=== PATIENT | male | born 1995 | race Caucasian/White ===

== ENCOUNTER 2024-01-08 04:48 | Day surgery (SDC) | payer OTHER ==
[2024-01-04 12:33] VITALS: BMI 23.7
[2024-01-08] MEDS ORDERED: BUPIVACAINE HCL/PF 0.25% (2.5MG/ML) 10 ML VIAL ONE (12:24)
[2024-01-08] MEDS ORDERED: BACITRACIN ZINC 15 GM TUBE TOPICAL OINTMENT ONE (12:24)
[2024-01-08] MEDS ORDERED: PROPOFOL 20 ML ONE (12:47)
[2024-01-08] MEDS ORDERED: MIDAZOLAM HCL 2 MG/2 ML SINGLE DOSE VIAL ONE (12:47)
[2024-01-08] MEDS ORDERED: LIDOCAINE HCL/PF 2% SDV 5ML VIAL ONE (12:47)
[2024-01-08] MEDS ORDERED: LIDOCAINE HCL 1%, 10 MG/ML (20ML VIAL) ONE (13:09)
[2024-01-08] MEDS: ceFAZolin SODIUM 1 GM VIAL IVPB ONE (13:26)
[2024-01-08] MEDS ORDERED: ceFAZolin SODIUM 1 GM VIAL ONE (13:27)
[2024-01-08] MEDS ORDERED: DEXAMETHASONE SOD PHOSPHATE 4 MG/1 ML VIAL ONE (13:27)
[2024-01-08] MEDS: BUPIVACAINE HCL/PF 0.25% (2.5MG/ML) 10 ML VIAL IJ ONE (13:34)
[2024-01-08] MEDS: LIDOCAINE HCL 1%, 10 MG/ML (20ML VIAL) NR ONE (13:34)
[2024-01-08] MEDS ORDERED: KETOROLAC TROMETHAMINE 30 MG/1 ML VIAL ONE (13:51)
[2024-01-08] MEDS ORDERED: ONDANSETRON 4 MG/2 ML VIAL ONE (13:51)
[2024-01-08] MEDS ORDERED: oxyCODONE HCL 5 MG TABLET PO PRN ×2 (14:11)
[2024-01-08] MEDS ORDERED: ONDANSETRON 4 MG/2 ML VIAL IVPUSH PRN (14:11)
[2024-01-08] MEDS ORDERED: PROMETHAZINE HCL 25 MG/1 ML VIAL IVPB PRN (14:11)
[2024-01-08] MEDS ORDERED: LACTATED RINGERS SOLUTION 1,000 ML IV SCH (14:15)
[2024-01-08] MEDS: ACETAMINOPHEN 1000 MG/100 ML BAG IVPB ONE (14:22)
[2024-01-08 16:21] VITALS: BP 115/69; PULSE 63; RESP 16; TEMP 98.6
== END 2024-01-08 16:26 | disposition home or self-care (01) ==
LOC: JASU-SURG 04:48
PROVIDERS: ATTEND Urology
PROC: 0VNS0ZZ Release Penis, Open Approach (ICD-10-PCS; principal; 2024-01-08 13:00)
DX: N47.5 Adhesions of prepuce and glans penis (principal)
CPT/HCPCS: 88304-TC; 94760; J0131